=== PATIENT | female | born 1985 | race Caucasian/White ===

== ENCOUNTER 2017-02-24 19:21 | Inpatient (IN) | payer OTHER ==
[2017-02-24] MEDS ORDERED: IV RINGERS,LACTATED 1000ML 1,000 ML IV (19:30)
[2017-02-24 19:56] LABS: BILIRUBIN,URINE NEGATIVE (NEG); CLARITY,URINE CLEAR; COLOR,URINE YELLOW; GLUCOSE,URINE NEGATIVE (NEG); NITRITE,URINE NEGATIVE (NEG); PROTEIN,URINE NEGATIVE (NEG-TRACE); UROBILINOGEN,URINE 0.2 mg/dL (0.2 mg/dL)
[2017-02-24 20:01] LABS: BARBITURATES NEG (NEG); BENZODIAZEPINES NEG (NEG); CANNABINOIDS NEG (NEG); COCAINE NEG (NEG); METHADONE NEG (NEG); OPIATES NEG (NEG); PHENCYCLIDINE NEG (NEG)
[2017-02-24 20:02] LABS: AMPHETAMINE/METHAMPHETAMINE NEG (NEG); ETHANOL, URINE NEG (NEG)
[2017-02-24 20:04] LABS: BACTERIA,URINE MODERATE /HPF (0-FEW); RBC,URINE 0 /HPF (0-2); SQUAMOUS EPITHELIAL CELL,UR MANY /LPF; WBC,URINE >40 /HPF (0-4)
[2017-02-24 20:55] LABS: ADD MAN DIFF? NO
[2017-02-24 20:57] LABS: BASO # 0.2 x10^3/uL (0.0-0.2); BASO % 1 % (0-3); EOS # 0.2 x10^3/uL (0.0-0.7); EOS % 1 % (0-3); HEMOGLOBIN 12.4 g/dL (12.0-15.5); LYMPH # 2.3 x10^3/uL (1.0-4.8); LYMPH % 17 % (24-48); MEAN CORPUSCULAR HEMOGLOBIN 33 pg (25-35); MEAN CORPUSCULAR HGB CONC 35 g/dL (31-37); MEAN CORPUSCULAR VOLUME 95 fL (79-100); MONO # 0.6 x10^3/uL (0.0-1.1); MONO % 4 % (0-9); NEUT # 10.8 x10^3uL (1.8-7.7); NEUT % 77 % (31-73); PLATELET COUNT 336 x10^3/uL (140-400); RED BLOOD COUNT 3.81 x10^6/uL (3.50-5.40); RED CELL DISTRIBUTION WIDTH 13.7 % (11.5-14.5); WHITE BLOOD COUNT 14.1 x10^3/uL (4.0-11.0)
[2017-02-24 21:11] LABS: GLUCOSE 122 mg/dL (70-99)
[2017-02-24] MEDS ORDERED: 0.9 % SODIUM CHLORIDE 10 ML DISP.SYRIN. IV (22:00)
[2017-02-24] MEDS ORDERED: TERBUTALINE 1 MG/ML VIAL. SQ (22:00)
[2017-02-24] MEDS ORDERED: IBUPROFEN 600 MG TABLET. PO (22:00)
[2017-02-24] MEDS ORDERED: OXYTOCIN 30 UNIT/500 ML PREMIX 500 ML IV (22:00)
[2017-02-24] MEDS ORDERED: ONDANSETRON PF 4 MG/2 ML VIAL. IV (22:00)
[2017-02-24] MEDS ORDERED: LIDOCAINE 1% PF 30 ML VIAL. INJ (22:00)
[2017-02-24] MEDS: PENICILLIN G K 5,000,000 UNIT in IV DEXTROSE 5% 100 ML IV (22:58)
[2017-02-24] MEDS: IV RINGERS,LACTATED 1000ML 1,000 ML IV (22:58)
[2017-02-24] MEDS: DINOPROSTONE 10 MG SUPP.VAG VG (23:14)
[2017-02-24] MEDS ORDERED: diphenhydrAMINE HCL 25 MG CAPSULE PO (23:15)
[2017-02-25] MEDS: PENICILLIN G K 2,500,000 UNIT in IV NORMAL SALINE 50ML 50 ML IV ×3 (02:58→10:35)
[2017-02-25] MEDS: OXYTOCIN 30 UNIT/500 ML PREMIX 500 ML IV (06:22)
[2017-02-25] MEDS: IV RINGERS,LACTATED 1000ML 1,000 ML IV (09:41)
[2017-02-25] MEDS ORDERED: L&D EPIDURAL CASSETTE 100 ML EP (09:45)
[2017-02-25] MEDS ORDERED: fentaNYL PF VIAL 100 MCG/2 ML VIAL (09:45)
[2017-02-25] MEDS ORDERED: NALOXONE 0.4 MG/ML VIAL. IV (09:45)
[2017-02-25] MEDS ORDERED: ONDANSETRON PF 4 MG/2 ML VIAL. IV (09:45)
[2017-02-25] MEDS ORDERED: ROPIVacaine 0.2% PF 10 ML VIAL. EPI (09:45)
[2017-02-25] MEDS ORDERED: ePHEDrine PF IN SALINE 50 MG/5 ML DISP.SYRIN IV (09:45)
[2017-02-25] MEDS ORDERED: ROPIVacaine 0.2% IN 0.9%NACL PF 40 MG/20 ML DISP.SYRIN. ×2 (09:46→10:00)
[2017-02-25] MEDS ORDERED: L&D EPIDURAL SYRINGE 50 ML EP (09:46)
[2017-02-25] MEDS: fentaNYL PF VIAL 100 MCG/2 ML VIAL EPI (09:51)
[2017-02-25] MEDS ORDERED: L&D EPIDURAL 50 ML SYRINGE. EP (10:00)
[2017-02-25] MEDS ORDERED: 0.9 % SODIUM CHLORIDE 10 ML DISP.SYRIN. IV (13:00)
[2017-02-25] MEDS ORDERED: ACETAMINOPHEN 325 MG TABLET. PO (13:00)
[2017-02-25] MEDS ORDERED: SIMETHICONE 80 MG TAB.CHEW PO (13:00)
[2017-02-25] MEDS ORDERED: ZOLPIDEM 5 MG TABLET. PO (13:00)
[2017-02-25] MEDS ORDERED: OXYTOCIN 30 UNIT/500 ML PREMIX 500 ML IV (13:00)
[2017-02-25] MEDS ORDERED: MMR per PROTOCOL. MC (13:00)
[2017-02-25] MEDS ORDERED: oxyCODONE/APAP 5/325 1 TAB TABLET PO (13:00)
[2017-02-25] MEDS ORDERED: HYDROCORTISONE 1% TOPICAL OINTMENT 30GM TUBE. TP (13:00)
[2017-02-25] MEDS ORDERED: MAGNESIUM HYDROXIDE 2,400 MG/30 ML ORAL.SUSP. PO (13:00)
[2017-02-25] MEDS ORDERED: diphenhydrAMINE HCL 25 MG CAPSULE PO (13:00)
[2017-02-25] MEDS ORDERED: MAG HYDROX/ALUMINUM HYD/SIMETH 30 ML ORAL.SUSP PO (13:00)
[2017-02-25] MEDS ORDERED: PHENYLEPH/MINERAL OIL/PETROLAT RECTAL OINTMENT 28GM TUBE. RC (13:00)
[2017-02-25] MEDS: IBUPROFEN 800 MG TABLET. PO ×2 (15:22→22:26)
[2017-02-25] MEDS: BENZOCAINE 20% TOPICAL AEROSOL SPRAY 57GM CAN. TP (15:22)
[2017-02-26 01:08] LABS: RPR Non Reactive (Non Reactive)
[2017-02-26 05:42] LABS: ADD MAN DIFF? NO
[2017-02-26 05:59] LABS: BASO % 0 % (0-3); EOS # 0.3 x10^3/uL (0.0-0.7); EOS % 2 % (0-3); HEMATOCRIT 31.8 % (36.0-47.0); HEMOGLOBIN 10.7 g/dL (12.0-15.5); LYMPH # 3.2 x10^3/uL (1.0-4.8); LYMPH % 22 % (24-48); MEAN CORPUSCULAR HEMOGLOBIN 32 pg (25-35); MEAN CORPUSCULAR HGB CONC 34 g/dL (31-37); MEAN CORPUSCULAR VOLUME 95 fL (79-100); MONO # 0.9 x10^3/uL (0.0-1.1); MONO % 7 % (0-9); NEUT # 9.9 x10^3uL (1.8-7.7); NEUT % 69 % (31-73); PLATELET COUNT 246 x10^3/uL (140-400); RED BLOOD COUNT 3.37 x10^6/uL (3.50-5.40); RED CELL DISTRIBUTION WIDTH 13.7 % (11.5-14.5); WHITE BLOOD COUNT 14.4 x10^3/uL (4.0-11.0)
[2017-02-26] MEDS: IBUPROFEN 800 MG TABLET. PO ×2 (06:16→16:31)
[2017-02-26] MEDS ORDERED: FERROUS SULFATE 325 MG TABLET. PO (08:00)
[2017-02-26 13:14] LABS: HEP B SURFACE ABDY Non Reactive (.)
[2017-02-26 13:14] LABS: HIV ANTIBODY Non Reactive (Non Reactive)
[2017-02-26 22:09] LABS: RUBELLA IGG ANTIBODY 1.71 index (Immune >0.99)
[2017-02-27] MEDS: IBUPROFEN 800 MG TABLET. PO ×2 (02:19→09:29)
[2017-02-27] MEDS: DOCUSATE SODIUM 100 MG CAPSULE. PO ×2 (02:19→09:29)
[2017-02-27 08:11] LABS: STREP B BY PCR SEE SEPARATE REPORT
== END 2017-02-27 15:37 | disposition home or self-care (01) | DRG 775 ==
LOC: 3 SO LND 19:21 → 3 NORTH 02-25 15:45
PROC: 10E0XZZ Delivery of Products of Conception, External Approach (ICD-10-PCS; principal; 2017-02-25)
PROC: 0HQ9XZZ Repair Perineum Skin, External Approach (ICD-10-PCS; 2017-02-25)
PROC: 3E0R3BZ Introduction of Anesthetic Agent into Spinal Canal, Percutaneous Approach (ICD-10-PCS; 2017-02-25)
PROC: 00HU33Z Insertion of Infusion Device into Spinal Canal, Percutaneous Approach (ICD-10-PCS; 2017-02-25)
DX: O70.0 First degree perineal laceration during delivery (principal); F17.210 Nicotine dependence, cigarettes, uncomplicated; Z37.0 Single live birth; Z3A.40 40 weeks gestation of pregnancy; O80 Encounter for full-term uncomplicated delivery
CPT/HCPCS: 36415; 76815; 80307; 81001; 82947; 85025; 86593; 86703; 86706; 86762; 86850; 86900; 86901; 87086; 87653; 88307; G0378; G0379; J2540; J2590; J2795; J3010; J7120